=== PATIENT | female | born 1970 | race Hispanic/Latino ===

== ENCOUNTER 2018-05-27 12:39 | Emergency (ER) | payer MEDICAID ==
[2018-05-27 12:59] LABS: APPEARANCE,URINE Clear (CLEAR); BILIRUBIN,URINE Negative (NEGATIVE); COLOR,URINE Yellow (YELLOW); GLUCOSE, URINE (UA) Negative (NEGATIVE); KETONES,URINE Negative (NEGATIVE); LEUKOCYTE ESTERASE ,URINE Negative (NEGATIVE); NITRATE,URINE Negative (NEGATIVE); OCCULT BLOOD,URINE Negative (NEGATIVE); PROTEIN,URINE Negative (NEGATIVE)
[2018-05-27 13:02] LABS: HCG,QUAL RESULT NEGATIVE (NEGATIVE)
[2018-05-27 13:09] LABS: AMPHET/METH SCREEN,URINE NEGATIVE (NEGATIVE); BARBITURATE SCREEN, URINE NEGATIVE (NEGATIVE); BENZODIAZEPINES SCREEN,URINE NEGATIVE (NEGATIVE); CANNABINOID SCREEN,URINE NEGATIVE (NEGATIVE); COCAINE SCREEN,URINE NEGATIVE (NEGATIVE); OPIATE SCREEN,URINE NEGATIVE (NEGATIVE); PHENCYCLIDINE SCREEN,URINE NEGATIVE (NEGATIVE)
[2018-05-27 13:30] LABS: BASOPHILS % (AUTO) 0.8 % (0.0-5.0); EOSINOPHILS % (AUTO) 1.5 % (0.0-8.0); HEMATOCRIT 39.9 % (36-48); LYMPHOCYTES % (AUTO) 23.8 % (21.0-51.0); MEAN CORPUSCULAR HEMOGLOBIN 30.7 pg (27.0-33.0); MEAN CORPUSCULAR VOLUME 90.5 fL (79-99); NEUTROPHILS % (AUTO) 66.9 % (40.0-77.0); PLATELET COUNT (AUTO) 299 K/uL (130-400); RED BLOOD CELL COUNT(AUTO) 4.42 MIL/uL (4.00-5.50); RED CELL DISTRIBUTION WIDTH 14.3 % (11.0-15.5); WHITE BLOOD COUNT (AUTO) 6.4 K/uL (4.8-10.8)
[2018-05-27] MEDS ORDERED: CEFTRIAXONE SODIUM 1 GM ONE (13:33)
[2018-05-27] MEDS ORDERED: KETOROLAC TROMETHAMINE 30MG/ML ONE (13:33)
[2018-05-27] MEDS ORDERED: SODIUM CHLORIDE 0.9% 100 ML IV ONE (13:34)
[2018-05-27 13:42] LABS: CREATININE 0.6 mg/dL (0.5-1.5); POTASSIUM 4.4 mmol/L (3.5-5.1)
[2018-05-27 13:48] LABS: ALBUMIN 3.6 g/dL (3.5-5.0); BILIRUBIN,TOTAL 0.3 mg/dL (0.2-1.0); TOTAL PROTEIN, SERUM 8.1 g/dL (6.0-8.3)
== END 2018-05-27 15:19 | disposition home or self-care (01) ==
LOC: EDH 12:39
DX: R10.9 Unspecified abdominal pain (principal); R30.0 Dysuria; Z72.0 Tobacco use
CPT/HCPCS: 36415; 74176; 80053; 80305; 81003; 81025; 83690; 85025; 96374; 99284; J0696; J1885